=== PATIENT | male | born 1985 | race Caucasian/White ===

== ENCOUNTER 2020-02-15 21:15 | Emergency (ER) | payer MEDICAID ==
[2020-02-15] MEDS ORDERED: Bupivacaine 0.5% 10 ML SDV INJECT ONE (21:25)
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
[2020-02-15] MEDS ORDERED: ceFAZolin 1 GM in Premix Bag 1 BAG IV ONE ×2 (21:39→21:56)
[2020-02-15] MEDS ORDERED: ceFAZolin 1 GM Vial IM ONE (21:53)
[2020-02-15] MEDS ORDERED: Sodium Chloride 0.9% 50 ML ONE (22:00)
[2020-02-15] MEDS ORDERED: ceFAZolin 1 GM Vial ONE (22:00)
== END 2020-02-15 22:52 | disposition home or self-care (01) ==
LOC: JP.ED 21:15
DX: S66.126A Laceration of flexor muscle, fascia and tendon of right little finger at wrist and hand level, initial encounter (principal); S66.122A Laceration of flexor muscle, fascia and tendon of right middle finger at wrist and hand level, initial encounter; S66.324A Laceration of extensor muscle, fascia and tendon of right ring finger at wrist and hand level, initial encounter; S61.210A Laceration without foreign body of right index finger without damage to nail, initial encounter; W26.0XXA Contact with knife, initial encounter
CPT/HCPCS: 12004; 96365; 99282; J0690; J3490; 12044; 99283